=== PATIENT | male | born 1980 | race African-American/Black ===

== ENCOUNTER 2024-04-01 06:53 | Day surgery (SDC) | payer OTHER ==
[2024-03-27 12:39] VITALS: BMI 25.0
[2024-04-01 07:10] VITALS: RESP 18
[2024-04-01] MEDS ORDERED: PROPOFOL 160 ML ONE (07:28)
[2024-04-01] MEDS ORDERED: LIDOCAINE HCL/PF 2% SDV 5ML VIAL ONE (07:28)
[2024-04-01 08:32] VITALS: TEMP 97.1
[2024-04-01 12:58] VITALS: BP 106/70; PULSE 82
== END 2024-04-01 12:40 | disposition home or self-care (01) ==
LOC: FASU-ENDO 06:53
PROVIDERS: ATTEND Internal Medicine Gastroenterology
PROC: 0DBP8ZX Excision of Rectum, Via Natural or Artificial Opening Endoscopic, Diagnostic (ICD-10-PCS; principal; 2024-04-01 08:02)
DX: Z12.11 Encounter for screening for malignant neoplasm of colon (principal); K63.5 Polyp of colon
CPT/HCPCS: 88305-TC